=== PATIENT | female | born 1935 | race Asian ===

== ENCOUNTER 2021-12-07 12:38 | Emergency (ER) | payer BC, OTHER ==
[~2021-12-07] VITALS: Ht 149.9 cm; Wt 40.8 kg
--- NOTE | 2021-12-07 12:38 | NUR ---
PATIENT WAS BIBA TO BED 9
--- NOTE | 2021-12-07 12:40 | NUR ---
86 y/o female biba from home, c/o abd pain, bloody urine/stool. pt states she has been having abd pain for 10 days, bloody stool and urine for 2 days. pt states she has hx of appendicitis sx 3 years ago and since then she has been having complications since 2019. a&ox4, mandarin speaking, ambulates with heavy assistance. skin is pink/warm/dry. a&o x4, mandarin speaking. lungs clear bl, heart rate even and regular. pt denies any fever, cp, sob, or cough at this time. pt states pain is 7/10 at this time. vss. patient positioned for comfort. hob elevated. bed down. ermd made aware of pt. pmh: htn, appendicitis nka med: denies
[2021-12-07 12:55] VITALS: BP 118/52
[2021-12-07] MEDS ORDERED: NACL 0.9% 1,000 ML IV SCH (13:10)
[2021-12-07 13:46] LABS: BASOPHILS % (AUTO) 0.1 % (0.0-2.0); LYMPHOCYTES # (AUTO) 0.9 K/uL (2.5-16.5); MEAN CORPUSCULAR HEMOGLOBIN 33 pg (27-31); MEAN CORPUSCULAR HGB CONC 34 g/dL (33-37); MONOCYTES # (AUTO) 0.2 K/uL (0.8-1.0); MONOCYTES % (AUTO) 2.7 % (1.7-9.3); NEUTROPHILS # (AUTO) 7.5 K/uL (1.8-7.7); NEUTROPHILS % (AUTO) 87.2 % (42.2-75.2); PLATELET COUNT (AUTO) 150 K/uL (140-450); RED BLOOD CELL COUNT(AUTO) 2.03 MIL/uL (4.20-5.40); RED CELL DISTRIBUTION WIDTH 13.4 % (11.6-13.7); WHITE BLOOD COUNT (AUTO) 8.7 K/uL (4.8-10.8)
[2021-12-07 13:56] LABS: ALBUMIN 2.9 g/dL (3.4-5.0); ANION GAP 11.3 (8-16); ASPARTATE AMINOTRANSFERASE 15 U/L (15-37); CARBON DIOXIDE 23.1 mmol/L (21-32); CHLORIDE 110 mmol/L (98-107); CREATININE 0.7 mg/dL (0.6-1.3); GLUCOSE 147 mg/dL (74-106); LIPASE 63 U/L (73-393); POTASSIUM 4.4 mmol/L (3.5-5.1); SODIUM SERUM 140 mmol/L (136-145); TOTAL BILIRUBIN 0.3 mg/dL (0.0-1.0); UREA NITROGEN, BLOOD 56 mg/dL (7-18)
[2021-12-07 14:23] LABS: HEMATOCRIT 19.7 % (36-48); HEMOGLOBIN 6.8 g/dL (12.0-16.0)
--- NOTE | 2021-12-07 14:24 | NUR ---
pt taken to ct via barbie at this time
[2021-12-07] MEDS ORDERED: PANTOPRAZOLE 40 MG INJ VIAL IVP ONE (15:00)
--- NOTE | 2021-12-07 15:00 | NUR ---
kira swabbed at this time
[2021-12-07 15:09] LABS: PROTHROMBIN TIME 10.8 secs (10.8-13.4)
--- NOTE | 2021-12-07 15:12 | NUR ---
kira swab given to alejandro at this time
[2021-12-07 15:35] LABS: BILIRUBIN,URINE 2+ (NEGATIVE); COLOR,URINE YELLOW (YELLOW); LEUKOCYTE ESTERASE ,URINE TRACE (NEGATIVE); NITRITE, URINE POSITIVE (NEGATIVE); PH,URINE 6.5 (5.0-9.0); UGLUCOSE NEGATIVE (NEGATIVE)
[2021-12-07 15:37] LABS: APPEARANCE,URINE HAZY (CLEAR)
[2021-12-07 15:49] LABS: RBC,URINE 0-5 /HPF (0-5); WBC,URINE 0-5 /HPF (0-5)
[2021-12-07 15:50] LABS: BLOOD, URINE 3+ (NEGATIVE)
--- NOTE | 2021-12-07 16:25 | NUR ---
Consent signed per daughter, assembling fabricator michelleyce used, agreeing to administration of blood. Blood has been type and crossmatched. Blood sent from blood bank. Information on unit of blood checked against patient wristband at bedside by two nurses. All information matches. Patient or responsible republican informed of potential complications associated with blood transfusion. Informed of possible transfusion reaction symptoms. Aware of need to notify nurse at once of itching, shortness of breath, flushing, feeling of impending doom, or other symptoms not previously present. Vital signs taken within 5 minutes prior to initiation of transfusion. RN will remain with patient for first 15 minutes of transfusion at which time vital signs will be re-assessed.
--- NOTE | 2021-12-07 17:58 | NUR ---
pt given apple sauce, hot water, cracker and pudding. okay to eat per darrel sheppard
--- NOTE | 2021-12-07 18:28 | NUR ---
Patient appears to be resting comfortably in bed. Vital Signs within normal limits. Respirations even and unlabored.
--- NOTE | 2021-12-07 19:12 | NUR ---
blood transfusion done, vss at this time
[2021-12-07] MEDS ORDERED: cefTRIAXone 1,000 MG VIAL ONE (19:15)
--- NOTE | 2021-12-07 19:18 | NUR ---
PT LAYING IN BED LOCKED IN LOWEST POSITION W X2 SIDERAILS UP FOR PT SAFETY. PER PT DAUGHTER CARLOS DOWNEY PT REPORTS FEELING BETTER, W IMPROVEMENT OF ABDOMINAL PAIN 5/10, PT DOES NOT WANT PAIN MEDICATION AT THIS TIME. PT AWARE AND OK W TRANSFER TO [facility]. PT VS W IN NORMAL LIMITS. BREATHING EVEN AND UNLABORED. WILL CONTINUE TO MONITOR.
--- NOTE | 2021-12-07 19:20 | NUR ---
Patient to be transferred to [facility]. Is being transferred due to higher level of care. Receiving facility has accepting physician and available space. ER physician has signed transfer form. Patient or responsible green party has agreed to transfer and signed form. Patient belongings inventoried and will be sent with patient. Copy of nursing notes, lab reports, EKG, Physicians Orders and X-rays to be sent with patient. Report called to sam haney at receiving facility. [facility] ambulance service has been called for transfer. ETA is 1 hour.
--- NOTE | 2021-12-07 19:25 | NUR ---
PT ASSISTED TO BED RILEY, VOIDED CLEAR YELLOW URINE APPROX 300CC.
[2021-12-07] MEDS ORDERED: RIVA2.5T PO (20:06)
[2021-12-07] MEDS ORDERED: AMLO2.5T PO (20:06)
[2021-12-07] MEDS ORDERED: ISOS10TA9 PO (20:06)
[2021-12-07] MEDS ORDERED: MELO-176 PO (20:06)
--- NOTE | 2021-12-07 20:24 | NUR ---
PT DAUGHTER AT BEDSIDE. DROPPED OFF PURSE FOR PT.
[2021-12-07] MEDS ORDERED: CARV6.25 PO (20:35)
[2021-12-07] MEDS ORDERED: DONE10TA10 PO (20:35)
[2021-12-07] MEDS ORDERED: CELE200C PO (20:35)
[2021-12-07] MEDS ORDERED: SIMV40TA1 PO (20:35)
[2021-12-07] MEDS ORDERED: ASPI-1822 PO (20:35)
--- NOTE | 2021-12-07 21:44 | NUR ---
pt assisted to bed rodriguez, voided apprx 250cc yellow urine, no blood noted.
--- NOTE | 2021-12-07 22:52 | NUR ---
[facility] TRANSPORT AT BEDSIDE
[2021-12-07 23:02] VITALS: BP 104/46
--- NOTE | 2021-12-07 23:05 | NUR ---
PT TAKEN BY SHARI TIAN
== END 2021-12-07 23:05 | disposition short-term general hospital (02) ==
LOC: MED 12:38
DX: D64.9 Anemia, unspecified (principal); Z20.822 Contact with and (suspected) exposure to COVID-19; K92.2 Gastrointestinal hemorrhage, unspecified; N39.0 Urinary tract infection, site not specified; I10 Essential (primary) hypertension; Z90.49 Acquired absence of other specified parts of digestive tract
CPT/HCPCS: 36415; 74177; 80053; 81001; 83605; 83690; 85025; 85610; 85730; 86886; 86900; 86901; 86920; 87040; 87426; 96361; 96365; 96375; 99285; C9113; J0696; J7030; P9016; Q9967